=== PATIENT | female | born 1965 | race Caucasian/White ===

== ENCOUNTER 2023-04-02 03:56 | Day surgery (SDC) | payer OTHER, SELFPAY ==
[2023-03-19 14:01] VITALS: BMI 69.1
[2023-04-02 09:35] VITALS: BP 141/85; PULSE 84; RESP 20; TEMP 36.2; O2SAT 98; BMI 68.3
[2023-04-02] MEDS: LACTATED RINGERS 1,000 ML 150 ML IV CONT (09:53)
--- NOTE | 2023-04-02 09:57 | PM.HPGS ---
History of Present Illness History of Present Illness Consent: Risks, benefits, and alternatives have been discussed and questions answered. Patient agrees to proceed with procedure. Chief complaint: positive cologuard test Narrative: Saida Morales is a 58 year old female Presents for screening colonoscopy. Recent Cologuard test was found to be positive. Patient states that her current weight appetite and bowel movements are normal. Patient denies abdominal pain. She has had no bleeding. Family history noncontributory. Review of Systems Review of Systems: Review of systems noncontributory. [facility] Social History Social History Smoking status: Never smoker Alcohol intake: never Substance use type: does not use Living arrangements: with family Spiritual care concerns: No Meds Home Medications and Allergies Home Medications Medication Instructions Recorded Confirmed Type bupropion HCl 150 mg 24 hr tablet, 150 mg PO DAILY 03/19/23 04/02/23 History extended release gabapentin 800 mg tablet 800 mg PO BID 03/19/23 04/02/23 History levothyroxine 75 mcg tablet 75 mcg PO DAILY 03/19/23 04/02/23 History loratadine 10 mg tablet 10 mg PO DAILY 03/19/23 04/02/23 History tramadol 50 mg tablet 50 mg PO DAILY PRN Pain (Scale 03/19/23 04/02/23 History Score 4-6) Allergies Allergy/AdvReac Type Severity Reaction Status Date / Time No Known Allergies Allergy Mild Verified 04/02/23 09:40 Vital Signs Vital Signs - 24 hr 04/02/23 09:35 Temperature 97.1 F L Pulse Rate 84 Respiratory Rate 20 Blood Pressure 141/85 H Pulse Oximetry 98 Oxygen Delivery Room Air Exam Narrative: Physical exam reveals patient to be alert. Vital signs stable. HEENT exam is unremarkable. Patient is anicteric. Lungs are clear to auscultation and percussion. Heart is without murmur or extra sounds. Abdomen Is obese. bowel sounds are present soft nontender with no organomegaly. Digital external rectal exam is normal. Assessment and Plan Assessment and plan (1) Positive colorectal cancer screening using Cologuard test: Code(s): R19.5 - Other fecal abnormalities Status: Acute Assessment and Plan: Patient with positive Cologuard test. For this reason screening colonoscopy is to be performed. Further recommendations may be given after endoscopy. (2) Morbid obesity: Code(s): E66.01 - Morbid (severe) obesity due to excess calories Status: Acute
--- NOTE | 2023-04-02 10:54 | P.PNAN_ITS ---
Anes - Initial Pre Proc Eval Procedure: Operation Date: 04/02/23 11:00 Proposed Procedures p Colonoscopy - [place] Hurtado MD Date/Time: 04/02/23 10:54 Surgeon: [place] Hurtado MD Pre Op Diagnosis: positive cologuard test Patient Data Age: 58 Gender: F Height: 1.6 m Weight: 175.1 kg Last Vital Signs Temp 97.1 F L 04/02/23 09:35 Pulse 84 04/02/23 09:35 Resp 20 04/02/23 09:35 BP 141/85 H 04/02/23 09:35 Pulse Ox 98 04/02/23 09:35 O2 Del Method Room Air 04/02/23 09:35 Allergies Allergy/AdvReac Type Severity Reaction Status Date / Time No Known Allergies Allergy Mild Verified 04/02/23 09:40 Home Medications Medication Instructions Recorded Confirmed Type bupropion HCl 150 mg 24 hr tablet, 150 mg PO DAILY 03/19/23 04/02/23 History extended release gabapentin 800 mg tablet 800 mg PO BID 03/19/23 04/02/23 History levothyroxine 75 mcg tablet 75 mcg PO DAILY 03/19/23 04/02/23 History loratadine 10 mg tablet 10 mg PO DAILY 03/19/23 04/02/23 History tramadol 50 mg tablet 50 mg PO DAILY PRN Pain (Scale 03/19/23 04/02/23 History Score 4-6) Patient hx anesthesia problems: none Family hx anesthesia problems: none Results Review: All pre-operative results and documents have been reviewed as part of the pre- operative evaluation. [facility] Social History Social History Smoking status: Never smoker Alcohol intake: never Substance use type: does not use Living arrangements: with family Spiritual care concerns: No Anes - Eval Final PreProcedure Day of Procedure 04/02/23 10:54 Patient weight: super morbidly obese (super super morbid obesity) Heart: regular rate and rhythm Lungs: clear to auscultation Airway: Mallampati scale class III Neurological: alert and oriented Last oral intake: >/= 8 hours ASA classification: IV Emergent: no Anesthetic plan: proceed Anesthesia type and monitoring: general GIVS and standard monitoring Results Review: All pre-operative results and documents have been reviewed as part of the pre- operative evaluation. Informed Consent: The patient's anesthetic plan and its attendant risks and benefits were discussed with the patient/family/POA. Questions were solicited and answers provided to the satisfaction of the patient/family/POA.
[2023-04-02] MEDS: SIMETHICONE ORAL SUSPENSION 20 MG/0.3 ML 30 ML BOTTLE 0.6 ML IRRIGATION (11:37)
[2023-04-02 11:53] VITALS: BP 100/68; PULSE 69; RESP 17; O2SAT 99
[2023-04-02 12:03] VITALS: BP 137/95; PULSE 80; RESP 29; O2SAT 97
[2023-04-02 12:13] VITALS: BP 126/69; PULSE 93; RESP 19; O2SAT 100
== END 2023-04-02 12:27 | disposition home or self-care (01) ==
PROVIDERS: PCP Family Medicine; Visit Provider Internal Medicine Gastroenterology
PROC: 0DJD8ZZ Inspection of Lower Intestinal Tract, Via Natural or Artificial Opening Endoscopic (ICD-10-PCS; CPT 45378; principal; 2023-04-02 11:00)
DX: Z12.11 Encounter for screening for malignant neoplasm of colon (principal); R19.5 Other fecal abnormalities; D12.5 Benign neoplasm of sigmoid colon; K62.1 Rectal polyp; K63.5 Polyp of colon; K64.8 Other hemorrhoids; E66.01 Morbid (severe) obesity due to excess calories; Z68.44 Body mass index [BMI] 60.0-69.9, adult
CPT/HCPCS: 45385; 88305; J2704; J7120

== ENCOUNTER 2023-08-23 09:05 | Outpatient (CLI) | payer OTHER, SELFPAY ==
--- NOTE | ~2023-08-23 | XR_ITS ---
Clinical Indication: Cough PA and lateral views of the chest: Comparison: None Findings: The lungs are clear, without evidence of focal consolidation or pleural effusion. Cardiome diastinal silhouette is within normal limits. Bones and soft tissues are unremarkable. Impression: Normal chest. Reviewed, dictated and finalized at [facility]. [facility] ROOM Impression: Normal chest.
== END 2023-08-23 09:06 | disposition home or self-care (01) ==
PROVIDERS: PCP Family Medicine; Visit Provider Family Medicine
DX: R05.9 Cough, unspecified (principal)
CPT/HCPCS: 71046